=== PATIENT | female | born 1945 | race Caucasian/White ===

== ENCOUNTER 2020-06-08 12:37 | Emergency (ER) | payer OTHER, BC ==
[~2020-06-08] VITALS: Ht 172.7 cm; Wt 70.3 kg
[2020-06-08 12:51] VITALS: Ht 172.7 cm; Wt 70.3 kg
[2020-06-08 13:49] LABS: CALCIUM 8.8 mg/dL (8.5-10.1); CARBON DIOXIDE 26.3 mmol/L (21-32); CHLORIDE SERUM 102 mmol/L (98-107); CREATININE SERUM 0.8 mg/dL (0.6-1.0); GLUCOSE SERUM 114 mg/dL (74-106); POTASSIUM SERUM 3.9 mmol/L (3.5-5.1); SODIUM SERUM 136 mmol/L (136-145)
[2020-06-08 13:54] LABS: ALBUMIN 3.5 g/dL (3.4-5.0); ALKALINE PHOSPHATASE 87 U/L (46-116); ALT/SGPT 26 U/L (14-59); AST/SGOT 22 U/L (15-37); BILIRUBIN TOTAL 0.65 mg/dL (0.20-1.00); CHOLESTEROL 144 mg/dL (<200); CHOLESTEROL/HDL RATIO 3.7; HDL CHOLESTEROL 39 mg/dL (40-60); LIPASE 125 IU/L (73-393); TOTAL PROTEIN, SERUM 7.1 g/dL (6.4-8.2); TRIGLYCERIDES 112 mg/dL (<150)
[2020-06-08 13:55] LABS: T3 TOTAL 1.43 ng/mL
[2020-06-08 14:01] LABS: BASOPHIL % 0.2 % (0-2); PLATELET COUNT 230 x10^3mcL (130-400)
[2020-06-08 14:02] LABS: RED CELL DISTRIBUTION WIDTH 15.6 % (11.5-14.5)
[2020-06-08 14:34] LABS: FREE THYROXINE INDEX 2.3 ug/dL (1.4-4.5); T4(THYROXINE) 7.3 ug/dL (4.7-13.3)
[2020-06-08 15:49] LABS: microscopic required? NO
[2020-06-08 16:03] LABS: urine erythrocyte NEGATIVE (NEGATIVE)
[2020-06-08 16:28] VITALS: BP 114/74
== END 2020-06-08 16:28 | disposition home or self-care (01) ==
LOC: ED 12:37
PROVIDERS: Specialist
DX: R55 Syncope and collapse (principal); F03.90 Unspecified dementia, unspecified severity, without behavioral disturbance, psychotic disturbance, mood disturbance, and anxiety; M06.9 Rheumatoid arthritis, unspecified
CPT/HCPCS: 83880; 84439; J7030; Q0092

== ENCOUNTER 2020-07-18 07:47 | Emergency (ER) | payer OTHER, BC ==
[~2020-07-18] VITALS: Ht 165.1 cm; Wt 72.6 kg
[2020-07-18 08:05] VITALS: Ht 165.1 cm; Wt 72.6 kg
[2020-07-18 08:22] LABS: BASOPHIL % 0.4 % (0-2); PLATELET COUNT 213 x10^3mcL (130-400)
[2020-07-18 08:35] LABS: RED CELL DISTRIBUTION WIDTH 15.9 % (11.5-14.5)
[2020-07-18 09:18] LABS: CALCIUM 9.2 mg/dL (8.5-10.1); CARBON DIOXIDE 22.7 mmol/L (21-32); CHLORIDE SERUM 106 mmol/L (98-107); CREATININE SERUM 0.9 mg/dL (0.6-1.0); GLUCOSE SERUM 120 mg/dL (74-106); POTASSIUM SERUM 3.9 mmol/L (3.5-5.1); SODIUM SERUM 142 mmol/L (136-145)
[2020-07-18 09:22] LABS: ALBUMIN 3.9 g/dL (3.4-5.0); ALKALINE PHOSPHATASE 86 U/L (46-116); ALT/SGPT 17 U/L (14-59); AST/SGOT 16 U/L (15-37); BILIRUBIN TOTAL 0.4 mg/dL (0.20-1.00); MAGNESIUM 2.3 mg/dL (1.8-2.4); TOTAL PROTEIN, SERUM 7.3 g/dL (6.4-8.2)
[2020-07-18 09:30] VITALS: BP 109/70
== END 2020-07-18 10:36 | disposition home or self-care (01) ==
LOC: ED 07:47
PROVIDERS: Student in an Organized Health Care Education/Training Program
DX: S00.03XA Contusion of scalp, initial encounter (principal); M06.9 Rheumatoid arthritis, unspecified; W18.39XA Other fall on same level, initial encounter; Y93.89 Activity, other specified; Y92.89 Other specified places as the place of occurrence of the external cause; Y99.8 Other external cause status